=== PATIENT | female | born 1960 | race African-American/Black ===

== ENCOUNTER 2017-06-03 03:37 | Observation (INO) | payer OTHER ==
[~2017-06-03 03:37] MED LIST: AMIT50TA3 PO; CALCCHW25 PO; TAB-TAB PO
[2017-06-03 03:40] VITALS: BP 157/93; PULSE 82; RESP 16; TEMP 98.4; O2SAT 100
[2017-06-03] MEDS ORDERED: ASPIRIN 81 MG CHEW TAB PO ONE (04:00)
[2017-06-03] MEDS ORDERED: SODIUM CHLORIDE 0.9% FLUSH 10 ML FLUSH IVF PRN (04:00)
--- NOTE | 2017-06-03 04:04 | PD ---
HPI Chief Complaint: Chest Pain Time Seen by Provider: 03:49 Travel History International Travel<30 days: No Contact w/Intl Traveler<30days: No Traveled to known affect area: No History of Present Illness HPI Patient is a 56-year-old female with no past medical history, presents to the emergency room with complaints of chest pain. Patient reports that around 11pm last night, she began to have substernal chest pain. Patient reports that the pain felt sharp and stabbing in nature and thought that it was just acid reflux and ignored it and went to bed. Reports that she woke up prior to coming to the ER substernal chest pain. Reports that this time, she began to have diaphoresis and sob with her symptoms. Reports that the chest pain radiated up her neck and down her left arm. Reports no history of CAD, IN, hypertension, hyperlipidemia or diabetes. 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 Reports concern as she has a strong family history of early IN and CAD. Patient reports that at this time, chest pain has nearly resolved. Denies any recent travels/trips. Denies history of DVT/PE. PFSH Past Medical History Blood Disorders: No Heart Rhythm Problems: No Cancer: No Cardiac Catheterization: No Cardiovascular Problems: No High Cholesterol: No Chemotherapy: No Congestive Heart Failure: No Diabetes: No Endocrine: No Genitourinary: Yes (HX KIDNEY STONES 2004) Hepatitis: No Hiatal Hernia: No Heparin Induced Thrombocytopen: Yes Hypertension: No Immune Disorder: No Musculoskeletal: Yes (RIGHT ROT CUFF TEAR; BURSITIS LEFT KNEE ) Neurologic: Yes (HX MIGRAINE HEADACHES ) Psychiatric: No Respiratory: No Migraines: Yes Myocardial Infarction: No Thyroid Disease: No Tetanus Vaccination: < 5 Years Influenza Vaccination: Yes ?: Not Past Surgical History Abdominal Surgery: No AICD: No Body Medical Devices: NONE Cardiac Surgery: No Coronary Artery Bypass Graft: No Ear Surgery: No Endocrine Surgery: No Eye Surgery: No Genitourinary Surgery: Yes (CYSTOSCOPY - KIDNEY STONES 2004) Gynecologic Surgery: Yes (TOTAL HYSTERECTOMY 2001; EXP LAP X 2 1999, 2000) Hysterectomy: Yes Joint Replacement: No Oral Surgery: No Pacemaker: No Thoracic Surgery: No Other Surgery: Yes Family History Family Myocardial Infarction: Yes (SISTER) Social History Alcohol Use: Yes (A GLASS OF WINE ONCE A MONTH) Tobacco Use: No Substance Use: No Allergies-Medications (Allergen,Severity, Reaction): Coded Allergies: hydromorphone (Unverified Allergy, Severe, 06/03/17) NAUSEA/VOMITTING Uncoded Allergies: TAPE (Adverse Reaction, Unknown, 04/01/14) SKIN IRRITATION FOR SEVERAL DAYS AFTER INITIAL CONTACT - INCLUDING ELECTRODES Reported Meds & Prescriptions Reported Meds & Active Scripts Active No Active Prescriptions or Reported Medications Review of Systems General / Constitutional: No: Fever Eyes: No: Visual changes HENT: No: Headaches Cardiovascular: Positive: Chest Pain or Discomfort, Diaphoresis Respiratory: Positive: Shortness of Breath Gastrointestinal: No: Abdominal Pain Genitourinary: No: Dysuria Musculoskeletal: No: Pain Skin: No Rash Neurologic: No: Weakness Psychiatric: No: Depression Endocrine: No: Polydipsia Hematologic/Lymphatic: No: Easy Bruising Physical Exam Narrative GENERAL: NAD, Nontoxic SKIN: Focused skin assessment warm/dry. HEAD: Atraumatic. Normocephalic. EYES: Pupils equal and round. No scleral icterus. No injection or drainage. ENT: No nasal bleeding or discharge. Mucous membranes pink and moist. NECK: Trachea midline. No JVD. CARDIOVASCULAR: Regular rate and rhythm. No murmur appreciated. RESPIRATORY: No accessory muscle use. Clear to auscultation. Breath sounds equal bilaterally. GASTROINTESTINAL: Abdomen soft, non-tender, nondistended. Hepatic and splenic margins not palpable. MUSCULOSKELETAL: No obvious deformities. No clubbing. No cyanosis. No edema. NEUROLOGICAL: Awake and alert. No obvious cranial nerve deficits. Motor grossly within normal limits. Normal speech. PSYCHIATRIC: Appropriate mood and affect; insight and judgment normal. Data Data Last Documented VS Vital Signs Date Time Temp Pulse Resp B/P (MAP) Pulse Ox O2 Delivery O2 Flow Rate FiO2 06/03/17 04:03 100 Room Air 06/03/17 03:40 98.4 82 16 157/93 (114) Orders Orders Ckmb (Isoenzyme) Profile (06/03/17 03:56) Complete Blood Count With Diff (06/03/17 03:56) Comprehensive Metabolic Panel (06/03/17 03:56) Prothrombin Time / Inr (Pt) (06/03/17 03:56) Act Partial Throm Time (Ptt) (06/03/17 03:56) Troponin I (06/03/17 03:56) Lipase (06/03/17 03:56) Chest, Single Ap (06/03/17 03:56) Ecg Monitoring (06/03/17 03:56) Iv Access Insert/Monitor (06/03/17 03:56) Oximetry (06/03/17 03:56) Aspirin Chew (Aspirin Chew) (06/03/17 04:00) Sodium Chloride 0.9% Flush (Ns Flush) (06/03/17 04:00) Potassium Chloride (Kcl) (06/03/17 04:45) Admit Order (Ed Use Only) (06/03/17 05:08) Activity Bed Rest With Brp (06/03/17 05:09) Vital Signs (Adult) Q4H (06/03/17 05:09) Cardiac Rhythm .As Directed (06/03/17 05:09) Notify Dr: Other .PRN (06/03/17 05:09) Notify Dr. Parameters (06/03/17 05:09) Diet Npo (06/03/17 Breakfast) Ckmb (Isoenzyme) Profile (06/03/17 07:00) Ckmb (Isoenzyme) Profile (06/03/17 10:00) Troponin I (06/03/17 07:00) Troponin I (06/03/17 10:00) Electrocardiogram (06/03/17 05:09) Electrocardiogram (06/03/17 08:09) ^ Obtain (06/03/17 05:09) Bonderizer / Telemetry YUSEF.[id number] (06/03/17 05:09) Labs Laboratory Tests Test 06/03/17 04:00 White Blood Count 4.8 TH/MM3 Red Blood Count 4.61 MIL/MM3 Hemoglobin 12.5 GM/DL Hematocrit 36.8 % Mean Corpuscular Volume 79.9 FL Mean Corpuscular Hemoglobin 27.2 PG Mean Corpuscular Hemoglobin Concent 34.1 % Red Cell Distribution Width 14.5 % Platelet Count 246 TH/MM3 Mean Platelet Volume 9.1 FL Neutrophils (%) (Auto) 58.2 % Lymphocytes (%) (Auto) 26.7 % Monocytes (%) (Auto) 8.8 % Eosinophils (%) (Auto) 5.1 % Basophils (%) (Auto) 1.2 % Neutrophils # (Auto) 2.8 TH/MM3 Lymphocytes # (Auto) 1.3 TH/MM3 Monocytes # (Auto) 0.4 TH/MM3 Eosinophils # (Auto) 0.2 TH/MM3 Basophils # (Auto) 0.1 TH/MM3 CBC Comment DIFF FINAL Differential Comment Prothrombin Time 10.7 SEC Prothromb Time International Ratio 1.0 RATIO Activated Partial Thromboplast Time 27.1 SEC Blood Urea Nitrogen 15 MG/DL Creatinine 0.95 MG/DL Random Glucose 96 MG/DL Total Protein 7.3 GM/DL Albumin 3.3 GM/DL Calcium Level 9.2 MG/DL Alkaline Phosphatase 106 U/L Aspartate Amino Transf (AST/SGOT) 15 U/L Alanine Aminotransferase (ALT/SGPT) 24 U/L Total Bilirubin 0.4 MG/DL Sodium Level 141 MEQ/L Potassium Level 3.4 MEQ/L Chloride Level 105 MEQ/L Carbon Dioxide Level 29.6 MEQ/L Anion Gap 6 MEQ/L Estimat Glomerular Filtration Rate 74 ML/MIN Total Creatine Kinase 98 U/L Troponin I 0.02 NG/ML Lipase 370 U/L MDM Medical Decision Making Medical Screen Exam Complete: Yes Emergency Medical Condition: Yes Interpretation(s) EKG at 0353: NSR at 73bpm, qt/qtc: 350/376, no acute st or t wave changes Vital Signs Date Time Temp Pulse Resp B/P (MAP) Pulse Ox O2 Delivery O2 Flow Rate FiO2 06/03/17 03:40 98.4 82 16 157/93 (114) 100 Room Air Differential Diagnosis Differential includes arrhythmia, ACS, gerd, electrolyte abnormality, pe Narrative Course Patient is a 56-year-old female who presents to emergency room with chest pain. She reports that chest began around 11 PM last night, reports that she thought that symptoms were associated with GERD and went to sleep. Patient reports that she woke up from sleep with substernal chest pain radiating to her neck and down her left arm with associated shortness of breath and diaphoresis. Patient became concerned and came to the emergency for evaluation. Patient was placed on a teletypesetter monitor upon arrival to the ER. EKG was obtained. Labs including cardiac enzymes ordered. Patient is chest pain free at this time, ASA 162mg administer. Will continue to monitor patient Vital Signs Date Time Temp Pulse Resp B/P (MAP) Pulse Ox O2 Delivery O2 Flow Rate FiO2 06/03/17 04:03 100 Room Air 06/03/17 03:40 98.4 82 16 157/93 (114) 100 Room Air Laboratory Tests Test 06/03/17 04:00 White Blood Count 4.8 TH/MM3 (4.0-11.0) Red Blood Count 4.61 MIL/MM3 (4.00-5.30) Hemoglobin 12.5 GM/DL (11.6-15.3) Hematocrit 36.8 % (35.0-46.0) Mean Corpuscular Volume 79.9 FL (80.0-100.0) Mean Corpuscular Hemoglobin 27.2 PG (27.0-34.0) Mean Corpuscular Hemoglobin Concent 34.1 % (32.0-36.0) Red Cell Distribution Width 14.5 % (11.6-17.2) Platelet Count 246 TH/MM3 (150-450) Mean Platelet Volume 9.1 FL (7.0-11.0) Neutrophils (%) (Auto) 58.2 % (16.0-70.0) Lymphocytes (%) (Auto) 26.7 % (9.0-44.0) Monocytes (%) (Auto) 8.8 % (0.0-8.0) Eosinophils (%) (Auto) 5.1 % (0.0-4.0) Basophils (%) (Auto) 1.2 % (0.0-2.0) Neutrophils # (Auto) 2.8 TH/MM3 (1.8-7.7) Lymphocytes # (Auto) 1.3 TH/MM3 (1.0-4.8) Monocytes # (Auto) 0.4 TH/MM3 (0-0.9) Eosinophils # (Auto) 0.2 TH/MM3 (0-0.4) Basophils # (Auto) 0.1 TH/MM3 (0-0.2) CBC Comment DIFF FINAL Differential Comment Prothrombin Time 10.7 SEC (9.8-11.6) Prothromb Time International Ratio 1.0 RATIO Activated Partial Thromboplast Time 27.1 SEC (24.3-30.1) Blood Urea Nitrogen 15 MG/DL (7-18) Creatinine 0.95 MG/DL (0.50-1.00) Random Glucose 96 MG/DL (74-106) Total Protein 7.3 GM/DL (6.4-8.2) Albumin 3.3 GM/DL (3.4-5.0) Calcium Level 9.2 MG/DL (8.5-10.1) Alkaline Phosphatase 106 U/L (45-117) Aspartate Amino Transf (AST/SGOT) 15 U/L (15-37) Alanine Aminotransferase (ALT/SGPT) 24 U/L (10-53) Total Bilirubin 0.4 MG/DL (0.2-1.0) Sodium Level 141 MEQ/L (136-145) Potassium Level 3.4 MEQ/L (3.5-5.1) Chloride Level 105 MEQ/L (98-107) Carbon Dioxide Level 29.6 MEQ/L (21.0-32.0) Anion Gap 6 MEQ/L (5-15) Estimat Glomerular Filtration Rate 74 ML/MIN (>89) Total Creatine Kinase 98 U/L (26-192) Troponin I 0.02 NG/ML (0.02-0.05) Lipase 370 U/L (73-393) All labs and all studies reviewed patient in detail. Patient currently chest pain-free at this time. Plan to admit patient to the chest pain center for serial cardiac enzymes. Patient consents to observation to the hospital. Diagnosis Primary Impression: Chest pain Qualified Codes: R07.9 - Chest pain, unspecified Admitting Information Admitting Physician Requests: Observation Scripts No Active Prescriptions or Reported Meds Ibeth Jin DO Jun 03, 2017 04:04
[2017-06-03 04:08] LABS: AUTOMATED NEUTROPHIL # 2.8 TH/MM3 (1.8-7.7); BASOPHIL # 0.1 TH/MM3 (0-0.2); BASOPHIL % 1.2 % (0.0-2.0); EOSINOPHIL # 0.2 TH/MM3 (0-0.4); EOSINOPHIL % 5.1 % (0.0-4.0); HEMATOCRIT 36.8 % (35.0-46.0); HEMO FLAGS DIFF FINAL; LYMPH % 26.7 % (9.0-44.0); LYMPHOCYTE # 1.3 TH/MM3 (1.0-4.8); MEAN CELL VOLUME 79.9 FL (80.0-100.0); MEAN CORPUSCULAR HEMOGLOBIN 27.2 PG (27.0-34.0); MEAN CORPUSCULAR HGB CONC 34.1 % (32.0-36.0); MONO % 8.8 % (0.0-8.0); NEUT % 58.2 % (16.0-70.0); PLATELET COUNT 246 TH/MM3 (150-450); RED BLOOD COUNT 4.61 MIL/MM3 (4.00-5.30); RED CELL DISTRIBUTION WIDTH 14.5 % (11.6-17.2); WHITE BLOOD COUNT 4.8 TH/MM3 (4.0-11.0)
[2017-06-03 04:19] LABS: APTT (PATIENT) 27.1 SEC (24.3-30.1); PROTHROMBIN TIME - PATIENT 10.7 SEC (9.8-11.6)
[2017-06-03 04:21] LABS: ANION GAP 6 MEQ/L (5-15); AST (GOT) 15 U/L (15-37); BICARBONATE 29.6 MEQ/L (21.0-32.0); BLOOD UREA NITROGEN 15 MG/DL (7-18); CHLORIDE 105 MEQ/L (98-107); GLOMERULAR FILTRATION RATE 74 ML/MIN (>89); POTASSIUM 3.4 MEQ/L (3.5-5.1); SODIUM (NA) 141 MEQ/L (136-145)
[2017-06-03 04:22] LABS: ALT (GPT) 24 U/L (10-53)
[2017-06-03 04:26] LABS: ALKALINE PHOSPHATASE 106 U/L (45-117); TOTAL BILIRUBIN ADULT 0.4 MG/DL (0.2-1.0)
[2017-06-03 04:28] LABS: CREATINE KINASE 98 U/L (26-192)
[2017-06-03] MEDS ORDERED: POTASSIUM CHLORIDE 10 MEQ CONTROLLED RELEASE TAB PO ONE (04:45)
--- NOTE | 2017-06-03 05:02 | RADRPT ---
EXAM DATE/TIME: 06/03/2017 04:09 [facility] COMPARISON: No previous studies available for comparison. INDICATIONS : Chest pain. MEDICAL HISTORY : None. SURGICAL HISTORY : None. ENCOUNTER: Initial ACUITY: 1 day PAIN SCORE: 0/10 LOCATION: Bilateral chest FINDINGS: A single view of the chest demonstrates the lungs to be symmetrically aerated without evidence of mas s, infiltrate or effusion. The cardiomediastinal contours are unremarkable. Osseous structures are intact. CONCLUSION: No acute disease. Xavier Bueno MD on June 03, 2017 at 4:59 Board Certified Radiologist. This report was verified electronically.
[2017-06-03 06:20] VITALS: BP 139/86; PULSE 68; RESP 18; O2SAT 99
[2017-06-03 07:09] VITALS: BP 120/68; PULSE 86; RESP 16; O2SAT 100
--- NOTE | 2017-06-03 07:50 | EKG ---
Date Performed: 06/03/2017 Time Performed: 03:53:41 PTAGE: 56 years EKG: Sinus rhythm POSSIBLE LEFT ATRIAL ENLARGEMENT BORDERLINE ECG NO PREVIOUS TRACING DOCTOR: Praveen Gilliam Interpretating Date/Time 06/03/2017 07:48:23
[2017-06-03 08:12] LABS: CREATINE KINASE 108 U/L (26-192)
[2017-06-03 08:24] LABS: CKMB 1.2 NG/ML (0.5-3.6)
--- NOTE | 2017-06-03 09:12 | HHI.HP ---
HPI Primary Care Physician Rachele Driver MD Chief Complaint Chest pain History of Present Illness Ms. Mendez is a 56-year-old female patient with no significant medical history who presented to the ED via private vehicle with complaints of chest pain. Patient states that around 1030 last evening she noticed discomfort in her midsternal area that was characterized by stabbing pain. States that she took a couple Tums thinking it as related to her acid reflux which seemed to help the pain subside at the time. At around 0200 that morning patient was suddenly awoken to a throbbing midsternal chest pain with intermittent stabbing sensations. Was constant in nature. States pain worsened at the time with deep breathing. Does admit to associated dyspnea and diaphoresis, denies any nausea or vomiting. Patient states relief with Nitro in the ED. Unable to reproduce pain to palpation. Denies any recent illness including fever, chills, cough, headache, abdominal pain, nausea, vomiting or diarrhea. Patient does state she had a stress test performed in 2009 which was unremarkable. Review of Systems Respiratory: COMPLAINS OF: See HPI, Shortness of breath Cardiovascular: COMPLAINS OF: See HPI, Chest pain Past Family Social History Allergies: Coded Allergies: hydromorphone (Unverified Allergy, Severe, 06/03/17) NAUSEA/VOMITTING Uncoded Allergies: TAPE (Adverse Reaction, Unknown, 04/01/14) SKIN IRRITATION FOR SEVERAL DAYS AFTER INITIAL CONTACT - INCLUDING ELECTRODES Past Medical History Migraine headaches Past Surgical History Total hysterectomy 2001 Cystoscopy for kidney stones 2004 Reported Medications Reported Meds & Active Scripts Active No Active Prescriptions or Reported Medications Active Ordered Medications Current Medications Medications (Trade) Dose Ordered Sig/Tanmay Route Start Time Stop Time Status Last Admin (NS Flush) 2 ml UNSCH PRN IVF 06/03/17 04:00 Family History Maternal family medical history significant for hypertension and stroke. Patient's sister is a heavy smoker with a history of OR at the age of 45. Social History Denies any previous or current smoking history. Denies any alcohol use. Denies any illicit drug use. Prior cardiac stress testing Stress test in 2009 unremarkable. Physical Exam Vital Signs Vital Signs Date Time Temp Pulse Resp B/P (MAP) Pulse Ox O2 Delivery O2 Flow Rate FiO2 06/03/17 07:09 86 16 120/68 (85) 100 Room Air 06/03/17 06:20 68 18 139/86 (103) 99 Room Air 06/03/17 04:03 100 Room Air 06/03/17 03:40 98.4 82 16 157/93 (114) 100 Room Air Physical Exam GENERAL: Well-nourished, well-developed female patient lying in bed, in nad. SKIN: Warm and dry. No rash. HEAD: Atraumatic. Normocephalic. EYES: Pupils equal and round. No scleral icterus. No injection or drainage. ENT: No nasal bleeding or discharge. Mucous membranes pink and moist. NECK: Trachea midline. No JVD. CARDIOVASCULAR: Regular rate and rhythm. S1 and S2 present. No murmur appreciated. No rubs or gallops. RESPIRATORY: No accessory muscle use. Clear to auscultation. Breath sounds equal bilaterally. GASTROINTESTINAL: Abdomen soft, non-tender, nondistended. MUSCULOSKELETAL: Extremities without clubbing, cyanosis, or edema. No obvious deformities. NEUROLOGICAL: Awake and alert. No obvious cranial nerve deficits. Motor grossly within normal limits. Five out of 5 muscle strength in the arms and legs. Normal speech. PSYCHIATRIC: Appropriate mood and affect; insight and judgment normal. Laboratory Laboratory Tests Test 06/03/17 04:00 06/03/17 07:12 White Blood Count 4.8 Red Blood Count 4.61 Hemoglobin 12.5 Hematocrit 36.8 Mean Corpuscular Volume 79.9 Mean Corpuscular Hemoglobin 27.2 Mean Corpuscular Hemoglobin Concent 34.1 Red Cell Distribution Width 14.5 Platelet Count 246 Mean Platelet Volume 9.1 Neutrophils (%) (Auto) 58.2 Lymphocytes (%) (Auto) 26.7 Monocytes (%) (Auto) 8.8 Eosinophils (%) (Auto) 5.1 Basophils (%) (Auto) 1.2 Neutrophils # (Auto) 2.8 Lymphocytes # (Auto) 1.3 Monocytes # (Auto) 0.4 Eosinophils # (Auto) 0.2 Basophils # (Auto) 0.1 CBC Comment DIFF FINAL Differential Comment Prothrombin Time 10.7 Prothromb Time International Ratio 1.0 Activated Partial Thromboplast Time 27.1 Blood Urea Nitrogen 15 Creatinine 0.95 Random Glucose 96 Total Protein 7.3 Albumin 3.3 Calcium Level 9.2 Alkaline Phosphatase 106 Aspartate Amino Transf (AST/SGOT) 15 Alanine Aminotransferase (ALT/SGPT) 24 Total Bilirubin 0.4 Sodium Level 141 Potassium Level 3.4 Chloride Level 105 Carbon Dioxide Level 29.6 Anion Gap 6 Estimat Glomerular Filtration Rate 74 Total Creatine Kinase 98 108 Troponin I 0.02 0.02 Lipase 370 Creatine Kinase MB 1.2 Result Diagram: 06/03/1739906/03/17399 Course EKG NSR, no arrhythmias Caprini VTE Risk Assessment Caprini VTE Risk Assessment: No/Low Risk (score <= 1) Caprini Risk Assessment Model Point Value = 1 Point Value = 2 Point Value = 3 Point Value = 5 Age 41-60 Minor surgery BMI > 25 kg/m2 Swollen legs Varicose veins or History of unexplained or recurrent spontaneous Oral contraceptives or hormone replacement Sepsis (< 1 month) Serious lung disease, including pneumonia (< 1 month) Abnormal pulmonary function Acute myocardial infarction Congestive heart failure (< 1 month) History of inflammatory bowel disease Medical patient at bed rest Age 61-74 Arthroscopic surgery Major open surgery (> 45 min) Laparoscopic surgery (> 45 min) Malignancy Confined to bed (> 72 hours) Immobilizing plaster cast Central venous access Age >= 75 History of VTE Family history of VTE Factor V Leiden Prothrombin [id number] Lupus anticoagulant Anticardiolipin antibodies Elevated serum homocysteine Heparin-induced thrombocytopenia Other congenital or acquired thrombophilia Stroke (< 1 month) Elective arthroplasty Hip, pelvis, or leg fracture Acute spinal cord injury (< 1 month) Prophylaxis Regimen Total Risk Factor Score Risk Level Prophylaxis Regimen 0-1 Low Early ambulation 2 Moderate Order ONE of the following: *Sequential Compression Device (SCD) *Heparin 5000 units SQ BID 3-4 Higher Order ONE of the following medications: *Heparin 5000 units SQ TID *Enoxaparin/Lovenox 40 mg SQ daily (WT < 150 kg, CrCl > 30 mL/min) *Enoxaparin/Lovenox 30 mg SQ daily (WT < 150 kg, CrCl > 10-29 mL/min) *Enoxaparin/Lovenox 30 mg SQ BID (WT < 150 kg, CrCl > 30 mL/min) AND/OR *Sequential Compression Device (SCD) 5 or more Highest Order ONE of the following medications: *Heparin 5000 units SQ TID (Preferred with Epidurals) *Enoxaparin/Lovenox 40 mg SQ daily (WT < 150 kg, CrCl > 30 mL/min) *Enoxaparin/Lovenox 30 mg SQ daily (WT < 150 kg, CrCl > 10-29 mL/min) *Enoxaparin/Lovenox 30 mg SQ BID (WT < 150 kg, CrCl > 30 mL/min) AND *Sequential Compression Device (SCD) Assessment and Plan Assessment and Plan #1 Atypical chest pain: Admitted to the chest pain center. Serial EKGs and serial troponins ordered for ruling out purposes. CXR reviewed and unremarkable. Patient will be seen by Dr. Rubalcava in the chest pain center. An exercise stress test will be ordered to rule out ischemia, if no suspicion of ischemia patient will be discharged and encouraged to follow up with PCP in the outpatient setting. #2 Hypokalemia: K 3.4 status post KCL 30 meq PO x 1. Patient is stable at this time and agreeable to the plan. Betina Sanchez Jun 03, 2017 09:12
[2017-06-03] MEDS ORDERED: ONDANSETRON HCL 4 MG/2 ML VIAL IV PRN (09:15)
[2017-06-03] MEDS ORDERED: NITROGLYCERIN 0.4 MG SL 25 TABS/BTL SL PRN (09:15)
[2017-06-03] MEDS ORDERED: ACETAMINOPHEN 500 MG CPLT PO PRN (09:15)
[2017-06-03 09:20] VITALS: BP 131/75; PULSE 78; RESP 16; TEMP 97.5; O2SAT 98
[2017-06-03 10:10] VITALS: PULSE 68
[2017-06-03 13:07] VITALS: BP 111/73; PULSE 89; RESP 16; TEMP 98; O2SAT 98
--- NOTE | 2017-06-03 14:07 | HHI.DCPOC ---
Discharge Care Plan Diagnosis: (1) Atypical chest pain (2) GERD (gastroesophageal reflux disease) Goals to Promote Your Health * To prevent worsening of your condition and complications * To maintain your health at the optimal level Directions to Meet Your Goals Take your medications as prescribed Follow your dietary instruction Follow activity as directed Keep your appointments as scheduled Take your immunizations and boosters as scheduled If your symptoms worsen call your PCP, if no PCP go to Urgent Care Center or Emergency Room Smoking is Dangerous to Your Health. Avoid second hand smoke Call the 24-hour hour crisis hotline for domestic abuse at Betina Sanchez Jun 03, 2017 14:07
--- NOTE | 2017-06-03 15:08 | TR ---
Date Performed: 06/03/2017 Time Performed: 13:40:22 DOCTOR: Neymar Rubalcava DRUG LIST: CLINICAL HISTORY: REASON FOR TEST: REASON FOR ENDING: OBSERVATION: CONCLUSION: Jesus Alberto protocol complete test stopped secondary to reaching target heart rate seconda ry to leg fatigue. No reproducible chest discomfort. No ST segment changes to indicate ischemia. Upsl oping of ST segments and quickly return to baseline upon test ending. Great exercise tolerance. Recov viri quick and unremarkable.Maximum NH=248 Target HR Wglcuzvo=314.0% Maximum OA=717/88 Total Exercise Time=8:01 COMMENTS: Conclusion: Normal treadmill exercise. No evidence of ischemia.
--- NOTE | 2017-06-03 15:10 | EKG ---
Date Performed: 06/03/2017 Time Performed: 07:38:08 PTAGE: 56 years EKG: Sinus rhythm POSSIBLE LEFT ATRIAL ENLARGEMENT BORDERLINE ECG PREVIOUS TRACING : 04/01/2014 09.36 Since previous tracing, no significant change noted DOCTOR: Neymar Rubalcava Interpretating Date/Time 06/03/2017 15:09:48
--- NOTE | 2017-06-03 15:13 | EKG ---
Date Performed: 06/03/2017 Time Performed: 10:18:07 PTAGE: 56 years EKG: Sinus rhythm LEFT ATRIAL ENLARGEMENT ABNORMAL ECG Since PREVIOUS TRACING , no significant change noted DOCTOR: Neymar Rubalcava Interpretating Date/Time 06/03/2017 15:12:06
[2017-06-03] MEDS ORDERED: SODIUM CHLORIDE 0.9% FLUSH 10 ML FLUSH IV FLUSH SCH (21:00)
[2017-06-04 07:45] VITALS: PULSE 89
[2017-06-04] MEDS ORDERED: ASPIRIN 325 MG TAB PO SCH (09:00)
== END 2017-06-03 15:23 | disposition home or self-care (01) ==
LOC: NEPE 03:37 → NEDA 05:10 → NEPFCDU 08:46
DX: R07.89 Other chest pain (principal); E87.6 Hypokalemia; M54.2 Cervicalgia; M79.602 Pain in left arm; R06.02 Shortness of breath; R61 Generalized hyperhidrosis; R94.31 Abnormal electrocardiogram [ECG] [EKG]; I51.7 Cardiomegaly; K21.9 Gastro-esophageal reflux disease without esophagitis; Z82.49 Family history of ischemic heart disease and other diseases of the circulatory system
CPT/HCPCS: 71010; 80053; 82550; 82552; 83690; 84484; 85025; 85610; 85730; 93005; 93017; 99285; G0378